=== PATIENT | female | born 2000 | race Caucasian/White ===

== ENCOUNTER 2021-02-01 13:20 | Emergency (ER) | payer OTHER ==
[2021-02-01] MEDS ORDERED: ONDANSETRON 4 MG (ZOFRAN) ORAL DISSOLVE TAB PO ONE (13:45)
[2021-02-01 14:01] LABS: BILIRUBIN,URINE NEGATIVE (NEGATIVE); CLARITY,URINE CLEAR; COLOR,URINE YELLOW; GLUCOSE, URINE (UA) NEGATIVE (NEGATIVE); KETONES,URINE NEGATIVE (NEGATIVE); LEUKOCYTE ESTERASE ,URINE NEGATIVE (NEGATIVE); NITRITE,URINE NEGATIVE (NEGATIVE); PH,URINE 6.5 (5-9); PROTEIN,URINE NEGATIVE (NEGATIVE)
[2021-02-01 14:09] LABS: BACTERIA,URINE FEW /HPF; WBC,URINE 0-2 /HPF
[2021-02-01] MEDS ORDERED: ONDA4TAB11 PO (15:01)
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
[2021-02-01 15:06] VITALS: BP 126/70
== END 2021-02-01 15:05 | disposition home or self-care (01) ==
LOC: EDUNIT# 13:20 → ER 13:23
DX: S06.0X9A Concussion with loss of consciousness of unspecified duration, initial encounter (principal); Y04.8XXA Assault by other bodily force, initial encounter
CPT/HCPCS: 81000; 87088; 99282